=== PATIENT | female | born 1930 | race Caucasian/White ===

== ENCOUNTER 2018-09-07 07:25 | Outpatient (CLI) | payer MEDICARE, OTHER ==
[2018-09-18 09:03] LABS: BASOPHILS % 0.7 % (0.0-1.5); NEUTROPHILS # 5.2 # k/uL (1.4-7.7)
[2018-09-19 09:54] LABS: HDL 72 mg/dL (>40); eGFR (Non-African) > 60
== END 2018-09-07 07:27 ==
LOC: LAB 07:25
PROVIDERS: ATTEND Internal Medicine
DX: E78.2 Mixed hyperlipidemia (principal); I10 Essential (primary) hypertension; E03.8 Other specified hypothyroidism; E06.3 Autoimmune thyroiditis; Z79.899 Other long term (current) drug therapy
CPT/HCPCS: 36415; 80053; 80061; 84439; 84443; 85025

== ENCOUNTER 2018-09-12 15:31 | Outpatient (CLI) | payer MEDICARE, OTHER ==
[2018-09-18 08:16] LABS: APPEARANCE,URINE CLOUDY (CLEAR); COLOR,URINE YELLOW (YELLOW); OCCULT BLOOD,URINE TRACE-INTACT (NEGATIVE); UROBILINOGEN URINE 0.2 Eu (0.2-1.0)
== END 2018-09-12 15:33 ==
LOC: LAB 15:31
PROVIDERS: ATTEND Internal Medicine
DX: N39.0 Urinary tract infection, site not specified (principal)
CPT/HCPCS: 81002; 87086

== ENCOUNTER 2019-02-14 10:50 | Emergency (ER) | payer MEDICARE, OTHER ==
--- NOTE | 2019-02-14 11:08 | ED Physician Documentation ---
Fall - HISTORIAN Historian: patient - HPI Stated Complaint: left shoulder pain after fall Chief Complaint: Fall Additional Information: Patient [place] falling just prior to arrival. Patient states she had bent over to olive picker a pile of books. While trying to stand up with the books she lost her balance and fell to the left side. She complains of left shoulder pain, 3/10, nonradiating. She denies any other pain. She states she may have hit her head but if she did it was very minor. Onset: just prior to arrival Where: home Context: lost balance r: mild Associated Symptoms:: no loss of consciousness Location of Pain/Injury: L shoulder Injury to Right Extremity: none Injury to Left Extremity: shoulder - ROS CONST: no problems NEURO: denies: dizziness MS/SKIN/LYMPH: denies: weakness, numbness, neck pain, back pain EYES/ENT: denies: problems with vision CVS/RESP: denies: chest pain, shortness of breath GI/: denies: nausea - PAST HX Past History: COPD - SOCIAL HX Smoking History: cigarettes, greater than 1 pack/day Alcohol Use: none Drug Use: none - FAMILY HX Family History: none - REVIEWED ASSESSMENTS Nursing Assessment Reviewed: Yes Vitals Reviewed: Yes ED Results Lab/Radiology - Orders Orders: ED Orders Category Date Time Status SHOULDER 2 VIEWS OR MORE [RAD] Stat Exams 02/14/19 Ordered Fall Physical Exam - Physical Exam General Appearance: no acute distress, alert Head: non-tender, no swelling, no obvious injury Neck: non-tender, painless ROM Eye: ROBERT, EOMI Resp/CVS: chest non-tender, breath sounds nml, no resp. distress, heart sounds nml Abdomen: soft, normal bowel sounds Neuro: oriented x3, motor nml, mood/affect nml Skin: color nml Back: normal inspection, no vertebral tenderness Extremities: atraumatic, pelvis stable, hips non-tender, other (left shoulder tenderness at lateral humeral head) Joint: nml ROM - [place] Coma Score Eyes Open: Spontaneous Speech: Oriented Motor: Obeys Commands Discharge Clincal Impression: Fracture of left clavicle Qualifiers: Encounter type: initial encounter Clavicle location: lateral end Fracture type: closed Fracture alignment: nondisplaced Qualified Code(s): S42.035A - Nondisplaced fracture of lateral end of left clavicle, initial encounter for closed fracture Referrals: Anthony Ambrose MD [Primary Care Provider] - 2 Days Additional Instructions: 1. Wear figure eight brace 11/10. Remove for showers/baths 2. Wear sling as needed. Remove frequently to avoid frozen elbow 3. Follow up with Dr. Enriquez, Orthopedic. His office will be contacting you with appointment information. 4. Tylenol 650mg every 4 hours a needed for pain 5. [place] every 8 hours as needed for pain. This medication will cause dizziness and constipation. Have someone stay with you while on this medication. Add daily colace and/or senokot for constipation 6. Follow up with PCP within 1 week. 7. Return to ER for new or worsening symptoms Condition: Stable Disposition: 01 HOME, SELF-CARE Decision to Admit: NO Date of Decison to Admit: 02/14/19 Decision Time: 12:21
--- NOTE | 2019-02-14 11:41 | Diagnostic Imaging Report ---
PATIENT MR#: [id number] PATIENT PATIENT NAME: CHRISTIE MICHAELS DATE OF : 1930 REFERRING PHYSICIAN: Es Swartz EXAM DATE: 02/14/2019 ACCESSION NUMBER: [id number] EXAM DESCRIPTION: SHOULDER 2 VIEWS OR MORE Exam: Left shoulder. History: Fall. AP views of the left shoulder in internal and external rotation are submitted along with Y-view. An acute fracture through the distal end of the clavicle is noted. Narrowing, sclerosis and spurring at the glenohumeral joint is noted. No other soft tissue abnormalities are identified. Impression: Acute fracture through the distal end of the left clavicle. 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 Read by: Dr. Martin Salcedo Transcribed by: Transcribed Date: Electronically signed by: Dr. Martin Salcedo Date signed: 02/14/2019 11:40:33 AM
[2019-02-14 12:45] VITALS: BP 134/49
== END 2019-02-14 12:39 | disposition home or self-care (01) ==
LOC: ED 10:50
DX: S42.035A Nondisplaced fracture of lateral end of left clavicle, initial encounter for closed fracture (principal); W01.0XXA Fall on same level from slipping, tripping and stumbling without subsequent striking against object, initial encounter
CPT/HCPCS: 73030